=== PATIENT | female | born 1955 | race Two or more races ===

== ENCOUNTER 2018-01-13 15:49 | Emergency (ER) | payer OTHER ==
[~2018-01-13] VITALS: Ht 170.2 cm; Wt 63.0 kg
[2018-01-13] MEDS ORDERED: CEPHALEXIN500 MG PO (22:39)
[2018-01-13] MEDS ORDERED: INTESTINEX680 M1 PO (22:39)
[2018-01-13] MEDS ORDERED: CELEBREX100 MG PO (22:39)
[2018-01-13] MEDS ORDERED: PEPCID AC20 MG PO (22:39)
== END 2018-01-13 22:52 | disposition home or self-care (01) ==
LOC: ER 15:49
DX: K57.90 Diverticulosis of intestine, part unspecified, without perforation or abscess without bleeding (principal); N83.292 Other ovarian cyst, left side; K29.70 Gastritis, unspecified, without bleeding

== ENCOUNTER 2018-07-25 14:56 | Outpatient (CLI) | payer OTHER ==
[~2018-07-25 14:56] MED LIST: CELEBREX100 MG PO; CEPHALEXIN500 MG PO; INTESTINEX680 M1 PO; PEPCID AC20 MG PO
== END 2018-07-25 16:04 | disposition home or self-care (01) ==
LOC: LAB 14:56
DX: K57.30 Diverticulosis of large intestine without perforation or abscess without bleeding (principal); F31.89 Other bipolar disorder

== ENCOUNTER 2018-07-25 15:51 | Outpatient (CLI) | payer OTHER | END 2018-07-25 17:10 | disposition home or self-care (01) | LOC: TOM 15:51 | DX: M25.562 Pain in left knee (principal); R52 Pain, unspecified ==

== ENCOUNTER 2018-08-25 14:40 | Outpatient (CLI) | payer OTHER | END 2018-08-25 14:52 | disposition home or self-care (01) | LOC: RAD 14:40 | DX: G04.81 Other encephalitis and encephalomyelitis (principal); G04.90 Encephalitis and encephalomyelitis, unspecified ==

== ENCOUNTER 2018-10-04 15:39 | Emergency (ER) | payer OTHER ==
[~2018-10-04] VITALS: Ht 170.2 cm; Wt 54.4 kg
[2018-10-04] MEDS ORDERED: XANAX2 MG (16:05)
[2018-10-04] MEDS ORDERED: LAMICTAL150 M1 (16:06)
[2018-10-04] MEDS ORDERED: ZANTAC150 M3 (16:06)
== END 2018-10-04 21:13 | disposition home or self-care (01) ==
LOC: ER 15:39
DX: K63.89 Other specified diseases of intestine (principal); R10.31 Right lower quadrant pain

== ENCOUNTER 2019-10-16 10:57 | Outpatient (CLI) | payer OTHER ==
[~2019-10-16 10:57] MED LIST changes: +LAMICTAL150 M1; +XANAX2 MG; +ZANTAC150 M3
== END 2019-10-16 11:54 | disposition home or self-care (01) ==
LOC: SONOGRAMA 10:57
PROVIDERS: ATTEND Pathology Anatomic Pathology & Clinical Pathology
DX: E04.2 Nontoxic multinodular goiter (principal)

== ENCOUNTER 2020-09-18 18:23 | Emergency (ER) | payer OTHER ==
[~2020-09-18] VITALS: Ht 170.2 cm; Wt 49.9 kg
[2020-09-18] MEDS ORDERED: CLONAZEPAM0.5 MG PO (18:35)
[2020-09-18] MEDS ORDERED: DIGOXIN125 MCG PO (18:36)
[2020-09-18] MEDS ORDERED: FLAGYL500MG PO (21:57)
== END 2020-09-18 22:07 | disposition home or self-care (01) ==
LOC: ER 18:23
DX: K60.3 Anal fistula (principal); K57.90 Diverticulosis of intestine, part unspecified, without perforation or abscess without bleeding

== ENCOUNTER 2022-09-05 15:11 | Inpatient (IN) | payer OTHER ==
[~2022-09-05] VITALS: Ht 170.2 cm; Wt 48.5 kg
[~2022-09-05 15:11] MED LIST changes: +CLONAZEPAM0.5 MG PO; +DIGOXIN125 MCG PO; +FLAGYL500MG PO
[2022-09-05] MEDS ORDERED: ZOLOFT20 MG/1 ML PO (15:35)
== END 2022-09-07 15:53 | disposition home or self-care (01) | DRG 761 ==
LOC: ER 15:11 → OB/GYN 23:57
PROVIDERS: ADMIT Student in an Organized Health Care Education/Training Program; ATTEND Student in an Organized Health Care Education/Training Program
DX: N75.0 Cyst of Bartholin's gland (principal); N75.1 Abscess of Bartholin's gland; Z20.822 Contact with and (suspected) exposure to COVID-19

== ENCOUNTER 2023-07-23 15:29 | Outpatient (CLI) | payer OTHER ==
[~2023-07-23 15:29] MED LIST changes: +ZOLOFT20 MG/1 ML PO
== END 2023-07-23 15:50 | disposition home or self-care (01) ==
LOC: TOM 15:29
DX: R91.1 Solitary pulmonary nodule (principal)

== ENCOUNTER 2024-05-24 10:37 | Outpatient (CLI) | payer OTHER | END 2024-05-24 10:42 | disposition home or self-care (01) | LOC: SONOGRAMA 10:37 | PROVIDERS: ATTEND Internal Medicine Endocrinology, Diabetes & Metabolism | DX: E04.2 Nontoxic multinodular goiter (principal) ==

== ENCOUNTER 2025-03-22 08:39 | Outpatient (CLI) | payer OTHER | END 2025-03-22 08:42 | disposition home or self-care (01) | LOC: SONOGRAMA 08:39 | PROVIDERS: ATTEND Pathology Anatomic Pathology & Clinical Pathology | DX: D34 Benign neoplasm of thyroid gland (principal); E06.3 Autoimmune thyroiditis; E04.2 Nontoxic multinodular goiter ==